=== PATIENT | male | born 1940 | race Caucasian/White ===

== ENCOUNTER 2021-12-14 17:35 | Inpatient (IN) | payer MEDICARE, OTHER ==
[~2021-12-14] VITALS: Ht 172.7 cm; Wt 59.0 kg
--- NOTE | 2021-12-14 18:32 | NUR ---
BIBFamily , PT OUT OF TOWN VISITING ALZHEIMER/DEMENTIA MEDICATIONS NOT WORKING PT IS AGGITATED , ACTING ODD AND STRANGE, KEEPS GRABBING AT HIS CHEST & VOID IN PANT
[2021-12-14] MEDS ORDERED: HALOPERIDOL LACTATE INJ 5 MG/ML VIAL ONE (18:48)
[2021-12-14] MEDS ORDERED: HALOPERIDOL LACTATE INJ 5 MG/ML VIAL IM ONE (19:00)
[2021-12-14 19:26] LABS: CALCIUM, SERUM 7.7 mg/dL (8.5-10.1); CARBON DIOXIDE 26 mmol/L (21-32); CHLORIDE 107 mmol/L (98-107); CREATININE 1.1 mg/dL (0.6-1.3); GLUCOSE 108 mg/dL (74-106); POTASSIUM 3.7 mmol/L (3.5-5.1); SODIUM SERUM 142 mmol/L (136-145); UREA NITROGEN, BLOOD 16 mg/dL (7-18)
[2021-12-14] MEDS ORDERED: MIDAZOLAM HCL 5 MG/5ML VIAL IV ONE (19:30)
[2021-12-14] MEDS ORDERED: MIDAZOLAM HCL 2 MG/2ML VIAL ONE (19:43)
[2021-12-14 20:02] LABS: BASOPHILS % (AUTO) 0.2 % (0.0-2.0); EOSINOPHILS % (AUTO) 3.8 % (0.0-6.0); HEMATOCRIT 41 % (39-51); HEMOGLOBIN 13.5 g/dL (13.5-17.5); LYMPHOCYTES # (AUTO) 1.8 K/uL (0.8-4.8); LYMPHOCYTES % (AUTO) 24.3 % (20.0-44.0); MEAN CORPUSCULAR HGB CONC 33 g/dl (31.0-36.0); MEAN CORPUSCULAR VOLUME 94 fL (80-96); MONOCYTES # (AUTO) 1.1 K/uL (0.1-1.30); MONOCYTES % (AUTO) 15.2 % (2.0-12.0); NEUTROPHILS # (AUTO) 4.2 K/uL (1.8-8.9); NEUTROPHILS % (AUTO) 56.5 % (43.0-81.0); PLATELET COUNT (AUTO) 231 K/uL (150-450); RED BLOOD CELL COUNT(AUTO) 4.42 MIL/uL (4.5-6.0); WHITE BLOOD COUNT (AUTO) 7.5 K/uL (4.3-11.0)
--- NOTE | 2021-12-14 20:13 | NUR ---
PT TAKEN TO CT VIA SANDIE
[2021-12-14 20:58] LABS: BAND % (MANUAL) 6 % (0.0-5.0); EOSINOPHILS % (MANUAL) 5 % (0-4); LYMPHOCYTES % (MANUAL) 18 % (16-48); MONOCYTES % (MANUAL) 16 % (0-11.0); NEUTROPHILS % (MANUAL) 55 (42-76)
--- NOTE | 2021-12-14 21:18 | NUR ---
VALDEMAR GLEZ PAGED FOR EVAL.
--- NOTE | 2021-12-14 22:17 | NUR ---
COVID SWAB COLLECTED AND SENT TO LAB
--- NOTE | 2021-12-15 | NUR ---
REPORT GIVEN TO JAZ FELIX FOR DARYA
--- NOTE | 2021-12-15 00:17 | NUR ---
PT TRANSFERRED TO [facility] VIA HOSPITAL PROTOCOL. VSS. ALL BELONGINGS WITH PT.
[2021-12-15] MEDS ORDERED: MAG HYDROX/AL HYDROX/SIMETH 30 ML UDC PO PRN (01:30)
[2021-12-15] MEDS ORDERED: MAGNESIUM HYDROXIDE 30 ML UDC PO PRN (01:30)
[2021-12-15] MEDS ORDERED: ACETAMINOPHEN 325 MG TABLET PO PRN (01:30)
[2021-12-15] MEDS ORDERED: BLOOD SUGAR DIAGNOSTIC 1 EACH STRIP IN ONE (01:30)
[2021-12-15] MEDS: ZOLPIDEM TARTRATE 5 MG TABLET PO PRN ×2 (01:59→23:16)
--- NOTE | 2021-12-15 02:45 | NUR ---
GPS BUSINESS PERFORMANCE ADVISOR NOTE ADMITTED 81 Y/O MALE PATIENT FROM [facility], ER. PATIENT IS ON 5150 HOLD FOR DTO/GD. PER 5150 HOLD, AT BEDSIDE EVALUATION, PATIENT WAS CONFUSED, HE WAS NOT COMPLYING WITH QUESTIONS OR DIRECTIONS, PATIENT WAS YELLING AND SCREAMING AT STAFF, REFUSING CARE AND GRABBING ON TO STAFF. PATIENT WAS UNABLE TO PROVIDE ADDITIONAL DETAIL, CLINICIAN REACHED OUT TO FAMILY FOR HX BUT NO RESPONSE. UPON FACE TO FACE EVALUATION, PATIENT IS A & O X 1, EXTREMELY CONFUSED, AGGRESSIVE, UNPREDICTABLE, STRING AT STAFF DURING CARE. GRABBING ON TO STAFF, COMBATIVE, IMPULSIVE, ANXIOUS, RESTLESS, UNABLE TO COMPREHEND, UNSTEADY GAIT, HIGH FALL RISK. NO ACUTE DISTRESS NOTED. NO C/O PAIN VERBALIZED AT THIS TIME. PATIENT IS UNABLE TO SIGN ALL ADMISSION PAPERWORK, PATIENT REFUSED FULL SKIN ASSESSMENT X 3. PATIENT ADVISED OF HIS HOLD AND PATIENT RIGHTS BOOKLET AND PRESCRIPTION MEDICATION GUIDE GIVEN. PATIENT BELONGINGS WERE INVENTORIED FOR [employer]. PT IS UNDER THE PSYCHIATRIC CARE OF DR. SUERO AND MEDICAL CARE OF KATRINA GREER NP. PATIENT IS UNABLE TO PROVIDE ANY HISTORY AND INFORMATION ABOUT HIS FAMILY MEMBERS DUE TO CURRENT MENTAL STATES/CONFUSION. WILL TRY TO F/U WITH FAMILY IN AM. PATIENT PATIENT BED IS IN LOW LOCKED POSITION, SIDE RAILS UP X 3 FOR SAFETY. BED ALARM IS ON. WILL CONTINUE TO MONITOR Q15 MINS FOR MOOD, SAFETY AND BEHAVIOR.
--- NOTE | 2021-12-15 03:00 | NUR ---
RN NOTE PATIENT IS UNCOOPERATIVE, AGGRESSIVE, AGITATED, UNPREDICTABLE, TRYING TO HIT/STRIKE AT STAFF, GRABBING ON TO STAFF, EXTREMELY CONFUSED, NON REDIRECTABLE, IMPULSIVE. PATIENT REFUSED MRSA SWAB, VITALS, ACCU CHECK AND FULL BODY ASSESSMENT TO BE DONE DUE TO HIS AGGRESSIVE/COMBATIVE BEHAVIOR. PATIENT NOTED WITH GENERALIZED BODY RASH, IN ER MD REPORT, PER FAMILY/CAREGIVER TO ER MD, PATIENT HAD A ALLERGIC REACTION TO BACTRIM AND DEVELOPED RASH WHICH IS IMPROVING. PT ORDERED, PATIENT IS UNSTEADY GAIT, HIGH FALL RISK, PER ER REPORT, PATIENT FELL AT HOME RECENTLY. PATIENT IS UNABLE TO PROVIDE ANY RELEVANT HISTORY DUE TO CONFUSION.
[2021-12-15] MEDS: LORAZEPAM 0.5 MG TABLET PO PRN ×2 (06:22→13:04)
--- NOTE | 2021-12-15 06:25 | NUR ---
RN NOTE: ANXIETY/AGITATION PATIENT IS ANXIOUS, AGITATED, IMPULSIVE, GETS RESTLESS EASILY WHEN APPROACHED TO PROVIDE ADL CARE, PRN ATIVAN 1 MG PO ADMINISTERED ORDERED.
--- NOTE | 2021-12-15 07:31 | NUR ---
GPS RN OPENING NOTE RECEIVED PT ASLEEP, EASILY AROUSED. PT A/O X1, EASILY AGGRESSIVE AND COMBATIVE. PT IS REORIENTED AND REDIRECTED NEEDED. NOT IN ANY SIGN OF DISTRESS. SAFETY MEASURES IN PLACE AND MAINTAINED. CALL LIGHT WITHIN REACH. WILL CONTINUE TO MONITOR PT.
--- NOTE | 2021-12-15 07:34 | NUR ---
RN NOTE: LEFT A VOICEMAIL CALLED PATIENT'S ELVIRA ARAGON AT [phone] AND LEFT A VOICEMAIL REGARDING PATIENT'S ADMISSION AT [facility] SINCE ELVIRA WAS NOT REACHABLE. ENDORSED TO AM RN.
[2021-12-15 08:00] VITALS: BP 141/83
[2021-12-15] MEDS ORDERED: QUET25TA PO (09:02)
[2021-12-15] MEDS ORDERED: GABA-532 PO (09:02)
[2021-12-15] MEDS ORDERED: MELA5TAB PO (09:02)
[2021-12-15] MEDS ORDERED: LEVO50TA8 PO (09:02)
[2021-12-15] MEDS ORDERED: TRAZ-257 PO (09:02)
[2021-12-15] MEDS ORDERED: SERT100T PO (09:02)
--- NOTE | 2021-12-15 10:06 | NUR ---
ELIJAH Clinical Note: Pt placed on a 5150 hold for GD and danger to others. Pt has been agitated and aggressive at home. Patient was currently residing at home per hold [address] [facility]. ELIJAH received a call from [facility] from [facility] ([phone]) who stated that they will be taking pt. ELIJAH attempted to contact pt's Daisy ([phone]) and was unavailable at this time.
--- NOTE | 2021-12-15 10:06 | NUR ---
ELIJAH Initial Discharge: Patient was currently residing at home per hold [address] [facility]. ELIJAH received a call from Jazmyn lane from [facility] ([phone]) who stated that they will be taking pt. ELIJAH attempted to contact pt's Daisy ([phone]) and was unavailable at this time. ELIJAH will work with the family, pt, and MD to help coordinate appropriate discharge.
--- NOTE | 2021-12-15 10:08 | NUR ---
Treatment Plan: Pt unable to sign treatment plan and was very confused/aggressive.
--- NOTE | 2021-12-15 12:44 | NUR ---
ELIJAH Family Contact: ELIJAH contacted pt's Daisy ([phone]) and discussed treatment/discharge plan. Daisy stated that she is the DPOA and will fax the document to this music writer. Daisy reported that she would want pt to go to [facility], noted.
--- NOTE | 2021-12-15 13:05 | NUR ---
RN NOTE PT HAS BEEN AGITATED AND COMBATIVE TOWARDS STAFF. ATIVAN 1MG PO GIVEN ORDERED PRN Q6H FOR AGITATION. WILL MONITOR AND REASSESS PT.
--- NOTE | 2021-12-15 13:10 | NUR ---
GPS RN NOTE PT AWAKE IN GERICHAIR. PT A/O X1, PT NOTED WITH EPISODES OF AGITATION AND COMBATIVE TOWARDS STAFF. ATIVAN 1MG GIVEN ORDERED PRN FOR AGITATION. PT IS ALSO REORIENTED AND REDIRECTED NEEDED. NOT IN ANY SIGN OF DISTRESS. SAFETY MEASURES IN PLACE AND MAINTAINED. CALL LIGHT WITHIN REACH. WILL CONTINUE TO MONITOR PT.
[2021-12-15 16:00] VITALS: BP 173/79
--- NOTE | 2021-12-15 16:02 | NUR ---
GPS RN NOTE RECEIVED A CALL FROM PT'S , ELVIRA. PER ELVIRA, PT WAS IN ER LAST WEEK IN [facility] AND THEY TOLD HER THAT PT HAD A AORTIC ANEURISM AND SHE WAS CONCERN AND JUST WANTED TO FOLLOW UP. CALLED DR. SOLITARIO AND MADE HIM AWARE OF THE 'S CONCERN AND PER DR. SOLITARIO HE WILL LOOK INTO IT.
[2021-12-15] MEDS: QUETIAPINE FUMARATE 25 MG TABLET PO SCH (22:27)
[2021-12-16] MEDS: LORAZEPAM 0.5 MG TABLET PO PRN (02:59)
--- NOTE | 2021-12-16 03:11 | NUR ---
TAX INVESTIGATOR NOTES: GIVEN PRN ATIVAN 1 MG PO FOR ANXIETY AND AGITATION ORDERED.
--- NOTE | 2021-12-16 07:00 | NUR ---
GPS RN OPENING NOTES PATIENT LAYING IN GERICHAIR, A/O X 1, TOLERATING WELL ON ROOM AIR WITH NO S/S RESPIRATORY DISTRESS. PATIENT IS CONFUSED, BUT CALM, AND SPEAKING ALOUD TO HIMSELF. NO COMPLAINTS OF PAIN OR DISCOMFORT AT THIS TIME. SAFETY MEASURES IN PLACE: GERICHAIR IN LOWEST POSITION, SIDE RAILS UP X 2, PATIENT WITHIN VIEW OF NURSES STATION. WILL CONTINUE TO MONITOR.
--- NOTE | 2021-12-16 07:50 | NUR ---
DPOA: Pt's Daisy ([phone]) send DPOA paperworks. SW place in chart.
[2021-12-16 08:00] VITALS: BP 141/94
--- NOTE | 2021-12-16 09:32 | NUR ---
ELIJAH Note: ELIJAH received a call from Jazmyn ([phone]) stating that Daisy ([phone]) was concerned and that someone contacted her stating pt's stay at the hospital is not covered. ELIJAH contacted Daisy and stated who had contacted her she stated "No one, I was just concerned". ELIJAH explained this a medicare providing facility and if she is concerned about this she can contact the business department.
[2021-12-16] MEDS: GABAPENTIN 300 MG CAPSULE PO SCH ×2 (12:42→17:50)
[2021-12-16 16:00] VITALS: BP 169/100
--- NOTE | 2021-12-16 19:31 | NUR ---
GPS RN CLOSING NOTES PATIENT LAYING IN GERICHAIR, A/O X 1, TOLERATING WELL ON ROOM AIR WITH NO S/S RESPIRATORY DISTRESS. PATIENT IS CONFUSED, BUT NO OUTBURSTS OR EPISODES OF YELLING NOTED DURING SHIFT. NO COMPLAINTS OF PAIN OR DISCOMFORT AT THIS TIME. SAFETY MEASURES IN PLACE: GERICHAIR IN LOWEST POSITION, SIDE RAILS UP X 2, PATIENT WITHIN VIEW OF NURSES STATION. WILL ENDORSE TO CHILD AND ADOLESCENT PSYCHIATRIST FOR DARYA.
[2021-12-16 20:00] VITALS: BP 133/85
--- NOTE | 2021-12-16 20:20 | NUR ---
RN NOTES :[facility].EASILY AGITAED, PARANOID GUARDED,DISORGNIZED,FLAT ,BLUNTED AFFECT , UNCOOPERTIVE WITH CARE., REFUSED TO STAYING IN BED,HIGH FALL RISK ,NO ACUTE DISTRESS NOTED.DENIES ANY PAIN OR DISCOMFORT AT THIS TIME.ALL NEEDS ATTENDED. WILL CONTINUE MONITORING FOR SAFETY AND BEHAVIOR.
[2021-12-16] MEDS: QUETIAPINE FUMARATE 25 MG TABLET PO SCH (21:23)
[2021-12-17] MEDS ORDERED: Z GUARD REMEDY 4 OZ OINT TP PRN (06:00)
--- NOTE | 2021-12-17 06:41 | NUR ---
RN NOTES: REFUSED SKIN ASESSMENT PT. REFUSED SKIN ASSESSMENT AND PHOTOS TAKEN , PER PT. MY SKIN IS FINE , NO NEED TO BE ASSESS , PT BEHAVIOR UNCOOPERTIVE ANXIOUS, RESTLESS,PARANOID , ENCOURAGED X3 BUT PT. STRONGLY REFUSED.
[2021-12-17 07:17] LABS: CHOLESTEROL 184 mg/dL (<200); HDL CHOLESTEROL 39 mg/dL (40-60); LDL 141 mg/dL (0-99); TRIGLYCERIDES 60 mg/dL (30-150)
[2021-12-17 08:00] VITALS: BP 125/66
[2021-12-17] MEDS: GABAPENTIN 300 MG CAPSULE PO SCH ×3 (09:15→16:14)
[2021-12-17] MEDS: LEVOTHYROXINE SODIUM 50 MCG TABLET PO SCH (09:15)
[2021-12-17] MEDS: Z GUARD REMEDY 4 OZ OINT TP SCH (09:16)
[2021-12-17] MEDS: LORAZEPAM 0.5 MG TABLET PO PRN (15:21)
[2021-12-17 16:00] VITALS: BP 143/83
--- NOTE | 2021-12-17 20:00 | NUR ---
RN NOTES:PATIENT RESTING HIS BED AWAKE ALERT.EASILY AGITAED, PARANOID GUARDED,DISORGNIZED,FLAT ,BLUNTED AFFECT , UNCOOPERTIVE WITH CARE., TRYING TO GET OUT OF THE BED,HIGH FALL RISK BANGING ON THE BED SIDE RAILS NON REDIRTABLE, NEEDS FREQUENTLY REDIRECTIONS . SAFETY PRECAUTIONS IN PLACED, DENIES ANY PAIN OR DISCOMFORT AT THIS TIME.ALL NEEDS ATTENDED. WILL CONTINUE MONITORING FOR SAFETY AND BEHAVIOR.
[2021-12-17 20:23] VITALS: BP 148/76
[2021-12-17] MEDS: QUETIAPINE FUMARATE 25 MG TABLET PO SCH (21:27)
--- NOTE | 2021-12-18 07:00 | NUR ---
GPS RN OPENING NOTES PATIENT LAYING IN BED, A/O X 1, CONFUSED, LABILE, EASILY AGITATED, DISORGANIZED, UNCOOPERATIVE. NO S/S RESPIRATORY DISTRESS, PAIN OR DISCOMFORT. SAFETY MEASURES IN PLACE: BED IN LOWEST LOCKED POSITION, SIDE RAILS UP X 2, CALL LIGHT WITHIN REACH. WILL CONTINUE TO MONITOR.
[2021-12-18 08:00] VITALS: BP 110/59
[2021-12-18] MEDS: Z GUARD REMEDY 4 OZ OINT TP SCH (08:42)
[2021-12-18] MEDS: LEVOTHYROXINE SODIUM 50 MCG TABLET PO SCH (08:42)
[2021-12-18] MEDS: GABAPENTIN 300 MG CAPSULE PO SCH ×3 (08:42→16:09)
[2021-12-18] MEDS: ENSURE ENLIVE CHOC 237 ML CAN PO SCH ×2 (11:18→16:09)
[2021-12-18] MEDS ORDERED: LORAZEPAM 0.5 MG TABLET PO PRN (13:30)
[2021-12-18 16:00] VITALS: BP 112/63
--- NOTE | 2021-12-18 18:04 | NUR ---
GPS RN OPENING NOTES PATIENT SITTING IN CHAIR, A/O X 1, CONFUSED, LABILE, EASILY AGITATED, DISORGANIZED, UNCOOPERATIVE. NO S/S RESPIRATORY DISTRESS, PAIN OR DISCOMFORT. SAFETY MEASURES IN PLACE: BED IN LOWEST LOCKED POSITION, SIDE RAILS UP X 2, CALL LIGHT WITHIN REACH. ALL NEEDS MET. WILL ENDORSE TO INVESTIGATION CLERK FOR DARYA. Addendum: 12/18/21 at 1805 by ANTIONE DOOLEY RN SAFETY PRECAUTIONS: CHAIR WITH SIDE RAILS UP X2 AND WITHIN VIEW OF NURSES STATION
--- NOTE | 2021-12-18 20:19 | NUR ---
RN NOTES: PATIENT WATCHING TV IN DAY ROOM AWAKE ALERT.EASILY AGITAED, PARANOID GUARDED,DISORGNIZED,FLAT ,BLUNTED AFFECT , UNCOOPERTIVE WITH CARE., REFUSED TO STAY IN THE THE BED,HIGH FALL RISK, BANGING ON THE GERICHAIR TABLE ,NON REDIRTABLE, NEEDS FREQUENTLY REDIRECTIONS .DENIES ANY PAIN OR DISCOMFORT AT THIS TIME.ALL NEEDS ATTENDED. WILL CONTINUE MONITORING FOR SAFETY AND BEHAVIOR.
[2021-12-18] MEDS: OLANZAPINE 2.5 MG TABLET PO SCH (20:44)
[2021-12-18 20:53] VITALS: BP 122/71
[2021-12-19 08:00] VITALS: BP 117/68
[2021-12-19] MEDS: ENSURE ENLIVE CHOC 237 ML CAN PO SCH ×3 (08:00→17:43)
[2021-12-19] MEDS: LEVOTHYROXINE SODIUM 50 MCG TABLET PO SCH (09:37)
[2021-12-19] MEDS: OLANZAPINE 2.5 MG TABLET PO SCH ×2 (09:37→21:32)
[2021-12-19] MEDS: GABAPENTIN 300 MG CAPSULE PO SCH ×3 (09:37→17:43)
[2021-12-19] MEDS: Z GUARD REMEDY 4 OZ OINT TP SCH (09:40)
--- NOTE | 2021-12-19 09:40 | NUR ---
Individual Therapy: SW attempted to conduct therapy with pt. However, pt did appear to be very confused and disorganized. Pt barely alert and oriented to self. Unable to have a proper conversation due to his confusion. SW unable to conduct therapy.
[2021-12-19 16:00] VITALS: BP 123/69
--- NOTE | 2021-12-19 19:30 | NUR ---
PATIENT RECEIVED RESTING IN BED, AWAKE ALERT, WITH RELATIVE AT BEDSIDE. WITH FLAT AFFECT AND COOPERATIVE, NO COMPLAINTS AND NOT IN DISTRESS. SAFETY PRECAUTIONS IN PLACE, DENIES ANY PAIN OR DISCOMFORT AT THIS TIME. WILL CONTINUE PLAN OF CARE AND WILL CONTINUE TO MONITOR PT FOR SAFETY.
--- NOTE | 2021-12-19 21:00 | NUR ---
PT RELATIVE BROUGHT PT'S SWEATER AND EXPERIMENTAL ASSEMBLER HOME. BELONGING FORM SIGNED.
[2021-12-19] MEDS: ZOLPIDEM TARTRATE 5 MG TABLET PO PRN (22:24)
[2021-12-20 08:00] VITALS: BP 142/83
[2021-12-20] MEDS: ENSURE ENLIVE CHOC 237 ML CAN PO SCH ×3 (08:32→17:22)
[2021-12-20] MEDS: LEVOTHYROXINE SODIUM 50 MCG TABLET PO SCH (08:33)
[2021-12-20] MEDS: OLANZAPINE 2.5 MG TABLET PO SCH ×2 (08:33→17:22)
[2021-12-20] MEDS: Z GUARD REMEDY 4 OZ OINT TP SCH (08:33)
[2021-12-20] MEDS: GABAPENTIN 300 MG CAPSULE PO SCH ×3 (08:33→17:22)
--- NOTE | 2021-12-20 09:53 | NUR ---
SNF Contact: SW sent clinicals that are updated to Jazmyn admin from [facility] ([phone]). SW sent H & P, progress notes, and medication list.
--- NOTE | 2021-12-20 09:54 | NUR ---
Court Notification: ELIJAH contacted pt's Daisy ([phone]) and notified of pt's 9250 hearing today.
[2021-12-20 16:00] VITALS: BP 108/59
--- NOTE | 2021-12-20 19:15 | NUR ---
GPS RN NOTES PATIENT IN THE DINING ROOM WATCHING TV. ALERT AND ORIENTED X1. NO S/SX OF ACUTE DISTRESS NOTED. PATIENT REMAINS CONFUSED, DISORGANIZED, DISORIENTED. SAFETY PRECAUTIONS IN PLACE. WILL CONTINUE TO MONITOR Q15MIN ROUNDS FOR SAFETY AND BEHAVIOR.
[2021-12-20] MEDS: OLANZAPINE ZYDIS 5 MG TAB.RAPDIS PO SCH (21:31)
[2021-12-20] MEDS: ZOLPIDEM TARTRATE 5 MG TABLET PO PRN (22:54)
[2021-12-21 08:00] VITALS: BP 111/75
[2021-12-21] MEDS: GABAPENTIN 300 MG CAPSULE PO SCH ×3 (09:16→16:40)
[2021-12-21] MEDS: OLANZAPINE 2.5 MG TABLET PO SCH ×2 (09:16→16:44)
[2021-12-21] MEDS: LEVOTHYROXINE SODIUM 50 MCG TABLET PO SCH (09:16)
[2021-12-21] MEDS: ENSURE ENLIVE CHOC 237 ML CAN PO SCH ×3 (09:21→16:51)
[2021-12-21] MEDS: Z GUARD REMEDY 4 OZ OINT TP SCH (09:21)
--- NOTE | 2021-12-21 14:15 | NUR ---
Court: Pt's court hearing for [id number] was post-poned due to court backed up with hearings.
[2021-12-21 16:00] VITALS: BP 119/56
[2021-12-21] MEDS: OLANZAPINE ZYDIS 5 MG TAB.RAPDIS PO SCH (21:31)
[2021-12-21] MEDS: ZOLPIDEM TARTRATE 5 MG TABLET PO PRN (22:55)
--- NOTE | 2021-12-22 07:57 | NUR ---
SW Discharge Note: Pt will be discharged to [facility] located at [address] [place] [address] . Please arrange ambulance at 1PM. Pts Daisy ([phone]) is aware and agreeable of dc. Upon discharge, the pt appears to be in a dysphoric mood and presented with a congruent affect. Pt appears to be alert and oriented x1 (place, self). Pt denies both suicidal and homicidal ideation as well as auditory and visual hallucinations. Pt appears to be ambulatory with a steady gait Pt will be under the care of her psychiatrist, Dr. Moncada, located at [address] [facility] [address], [place] [address]; . Pt will be under the care of vinegar maker, Dr. Veronica, [place] [address] [facility], [address] [address] . The choice of vendor form and multidisciplinary exit care form were done, printed, signed, and given to the patient.
[2021-12-22 08:00] VITALS: BP 107/69
--- NOTE | 2021-12-22 09:10 | NUR ---
RN-NOTES RECEIVED T.O DISCHARGE ORDER FROM DR. SUERO. PATIENT DISCHARGE TO SNF.NOTED AND CARRIED OUT.
[2021-12-22] MEDS: ENSURE ENLIVE CHOC 237 ML CAN PO SCH ×2 (09:11→13:25)
[2021-12-22] MEDS: OLANZAPINE 2.5 MG TABLET PO SCH (09:12)
[2021-12-22] MEDS: LEVOTHYROXINE SODIUM 50 MCG TABLET PO SCH (09:12)
[2021-12-22] MEDS: GABAPENTIN 300 MG CAPSULE PO SCH ×2 (09:15→13:24)
[2021-12-22] MEDS: Z GUARD REMEDY 4 OZ OINT TP SCH (11:23)
--- NOTE | 2021-12-22 13:34 | NUR ---
ms rn patient ready to be discharge, patient refused to take discharge pictures, denies suiciidal, now confuse, report given to Rn Sujey.
== END 2021-12-22 13:45 | DRG 885 ==
LOC: ER 17:45 → GPS 12-15 00:32
PROVIDERS: ADMIT Psychiatry & Neurology Psychiatry
DX: F29 Unspecified psychosis not due to a substance or known physiological condition (principal); F02.81 Dementia in other diseases classified elsewhere, unspecified severity, with behavioral disturbance; F23 Brief psychotic disorder; G30.9 Alzheimer's disease, unspecified; Z88.1 Allergy status to other antibiotic agents; Z73.6 Limitation of activities due to disability; R53.1 Weakness; R29.6 Repeated falls; W19.XXXA Unspecified fall, initial encounter; Y92.9 Unspecified place or not applicable; R27.8 Other lack of coordination; F41.9 Anxiety disorder, unspecified; F32.A Depression, unspecified; E03.9 Hypothyroidism, unspecified; Z79.899 Other long term (current) drug therapy; Z91.14 Patient's other noncompliance with medication regimen; Z91.81 History of falling
CPT/HCPCS: 36415; 70450-TC; 71045-TC; 80048-TC; 80061-TC; 82565-TC; 84484-TC; 85025-TC; 85730-TC; 97116-TC; 97530-TC; C9803; J1630; J2250